=== PATIENT | female | born 1960 | race Caucasian/White ===

== ENCOUNTER 2017-03-12 21:01 | Emergency (ER) | payer OTHER ==
[2017-03-12] MEDS ORDERED: GI Cocktail Oral Solution 30 ML PO ONE (21:30)
--- NOTE | 2017-03-12 21:35 | EDM.PDOC ---
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 has stress test & echo scheduled next 2 weeks. states pain in mid chest and arms hurts too. Chest Pain Score (Numeric/FACES): 7 - Related Data Allergies Allergy/AdvReac Type Severity Reaction Status Date / Time diphenhydramine Allergy Hives Verified 03/12/17 21:32 fluticasone Allergy Hives Verified 03/12/17 21:32 propoxyphene Allergy Hives Verified 03/12/17 21:32 pseudoephedrine Allergy Hives Verified 03/12/17 21:32 zolmitriptan Allergy Hives Verified 03/12/17 21:32 ANTHIHISTAMINES Allergy Hives Uncoded 03/12/17 21:32 MORPHINE SULFATE Allergy Hives Uncoded 03/12/17 21:32 SULFA ANTIBIOTICS Allergy Hives Uncoded 03/12/17 21:32 Home Meds: Home Meds Almotriptan Malate [Axert] 12.5 mg PO ASDIRECTED PRN 07/27/13 [History] Cetirizine HCl [Zyrtec] 10 mg PO DAILY 07/27/13 [History] Ferrous Sulfate 325 mg PO BRK 07/27/13 [History] Montelukast [Singulair] 10 mg PO DAILY 07/27/13 [History] Nortriptyline HCl [Pamelor] 25 mg PO BEDTIME 07/27/13 [History] Acetaminophen [Tylenol] 650 mg PO ASDIRECTED PRN 07/30/13 [History] Furosemide [Lasix] 20 mg PO DAILY 10/03/14 [History] Losartan [Cozaar] 25 mg PO DAILY 10/03/14 [History] traMADol [Ultram] 50 mg PO Q4H PRN 10/03/14 [History] Social & Family History - Tobacco Use Smoking Status *Q: Never Smoker - Alcohol Use Days Per Week of Alcohol Use: 0 - Recreational Drug Use Recreational Drug Use: No Drug Use in Last 12 Months: No ED ROS GENERAL - Review of Systems Review Of Systems: ROS reveals no pertinent complaints other than HPI. ED EXAM, GENERAL - Physical Exam Exam: See Below Exam Limited By: No Limitations General Appearance: Alert, WD/WN, Anxious Ears: Hearing Grossly Normal Throat/Mouth: Normal Voice, No Airway Compromise Head: Atraumatic Neck: Non-Tender, Full Range of Motion Respiratory/Chest: No Respiratory Distress, Lungs Clear, Normal Breath Sounds Cardiovascular: Regular Rate, Rhythm GI/Abdominal: Soft, Non-Tender, Other (BS hyper). No: Distended, Guarding, Rigid, Rebound, Tender Neurological: Alert, Oriented, Normal Cognition, Normal Gait, No Motor/Sensory Deficits Psychiatric: Anxious Skin Exam: Warm, Dry, Normal Color Lymphatic: No Adenopathy Course - Vital Signs Last Recorded V/S: Last Vital Signs Temp 36.6 C 03/12/17 21:10 Pulse 69 03/12/17 21:10 Resp 18 03/12/17 21:10 BP 167/94 H 03/12/17 21:10 Pulse Ox 99 03/12/17 21:10 - Orders/Labs/Meds Orders: Active Orders 24 hr Category Date Time Status EKG 12 Lead [EKG Documentation Completion] [RC] STAT Care 03/12/17 21:15 Active Labs: Laboratory Tests 03/12/17 03/12/17 03/12/17 Range/Units 21:15 21:15 21:15 WBC 7.6 (5.0-10.0) 10^3/uL RBC 4.61 (4.2-5.4) 10^6/uL Hgb 13.0 (12.0-16.0) g/dL Hct 40.0 (37.0-47.0) % MCV 86.8 (80-100) fL MCH 28.2 (27.0-34.0) pg MCHC 32.5 L (33.0-35.0) g/dL Plt Count 225 (150-450) 10^3/uL Neut % (Auto) 51.3 (42.2-75.2) % Lymph % (Auto) 30.4 (20.5-50.1) % [place] % (Auto) 9.7 H (2-8) % Eos % (Auto) 7.9 H (1.0-3.0) % Baso % (Auto) 0.7 (0.0-1.0) % D-Dimer, Quantitative 890 H (0-400) ng/mL Sodium 141 (135-145) mmol/L Potassium 4.2 (3.6-5.0) mmol/L Chloride 106 (101-111) mmol/L Carbon Dioxide 25.0 (21.0-31.0) mmol/L Anion Gap 14.2 BUN 20 H (7-18) mg/dL Creatinine 1.0 (0.6-1.3) mg/dL Est Cr Clr Drug Dosing 50.73 mL/min Estimated GFR (MDRD) 57 BUN/Creatinine Ratio 20.00 Glucose 84 (74-105) mg/dL Calcium 9.5 (8.4-10.2) mg/dl Total Bilirubin 0.6 (0.2-1.0) mg/dL AST 26 (10-42) IU/L ALT 22 (10-60) IU/L Alkaline Phosphatase 90 (42-121) IU/L Troponin I < 0.02 (0.00-0.02) ng/ml B-Natriuretic Peptide 14 (0-100) pg/ml Total Protein 7.2 (6.7-8.2) g/dl Albumin 4.2 (3.2-5.5) g/dl Globulin 3.0 Albumin/Globulin Ratio 1.40 Meds: Medications Discontinued Medications Generic Name Dose Route Start Last Admin Trade Name Freq PRN Reason Stop Dose Admin Al Hydroxide/Mg Hydroxide 30 ml 03/12/17 21:30 03/12/17 21:36 Gi Cocktail PO 03/12/17 21:31 30 ml ONETIME ONE Administration Iopamidol 100 ml 03/12/17 22:26 03/12/17 23:10 Isovue-370 (76%) IVPUSH 03/12/17 22:27 100 ml ONETIME ONE Administration Lorazepam 1 mg 03/12/17 21:47 03/12/17 21:52 Ativan IVPUSH 03/12/17 21:48 1 mg ONETIME ONE Administration - Re-Assessments/Exams Free Text/Narrative Re-Assessment/Exam: 03/13/17 00:30 results discussed with pt & family. 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
[2017-03-12] MEDS ORDERED: LORazepam 2 MG/ML Syringe IVPUSH ONE (21:47)
[2017-03-12 21:51] LABS: CHLORIDE,CL 106 mmol/L (101-111); SODIUM,NA 141 mmol/L (135-145)
[2017-03-12] MEDS ORDERED: Iopamidol 755 Mg/ML 100 ML Bottle IVPUSH ONE (22:26)
--- NOTE | 2017-03-15 11:32 | EKG ---
03/12/2017 - BORIS ROOT I reviewed the EKG and agree with the machine's reading. [facility] /[id number]
== END 2017-03-13 00:50 | disposition home or self-care (01) ==
LOC: DL.ED 21:01
DX: R07.89 Other chest pain (principal); Z79.899 Other long term (current) drug therapy; Z88.2 Allergy status to sulfonamides; Z88.5 Allergy status to narcotic agent; Z88.8 Allergy status to other drugs, medicaments and biological substances
CPT/HCPCS: 36415; 71260; 80053; 83880; 84484; 85025; 85379; 93005; 96374; 99285; A9270; J2060; Q9967

== ENCOUNTER 2018-09-30 09:37 | Emergency (ER) | payer BC ==
[2018-09-30] MEDS ORDERED: Sodium Chloride 0.9% 10 ML Syringe FLUSH PRN (10:37)
[2018-09-30 11:43] LABS: ANION GAP 13.7; CHLORIDE,CL 105 mmol/L (101-111); SODIUM,NA 137 mmol/L (135-145)
[2018-09-30] MEDS ORDERED: Iopamidol 755 Mg/ML 100 ML Bottle IVPUSH ONE (11:51)
[2018-09-30] MEDS ORDERED: Heparin Sodium 5,000 Units/ML Vial IVPUSH ONE (12:56)
[2018-09-30] MEDS ORDERED: Heparin Sodium/0.45% NaCl 25,000 UNITS/500 ML BAG IV SCH (13:00)
[2018-09-30] MEDS ORDERED: Heparin Sodium/0.45% NaCl 500 ML ONE (13:00)
--- NOTE | 2018-09-30 17:55 | EDM.PDOC ---
Scribed by Lida Mares 09/30/18 1139 for Ernesitna Angeles NP ED HPI GENERAL MEDICAL PROBLEM - General Chief Complaint: Respiratory Problem Stated Complaint: SOB Time Seen by Provider: 09/30/18 10:30 Source of Information: Reports: Patient, RN, RN Notes Reviewed History Limitations: Reports: No Limitations - History of Present Illness INITIAL COMMENTS - FREE TEXT/NARRATIVE: Patient presents to ER with complaint of feeling clammy, sweaty, and shortness of breath. It began abruptly 24 hours ago and getting worse. States had a steroid injection in the back yesterday at [facility]. She has a cough, shortness of breath, lightheaded and cramps all through both legs. No chest pain, nausea or vomiting. Onset: Sudden Onset Date: 09/29/18 Duration: Getting Worse Location: Reports: Generalized Quality: Reports: Ache Severity: Moderate Improves with: Reports: None Worsens with: Reports: None Associated Symptoms: Reports: No Other Symptoms - Related Data Allergies Allergy/AdvReac Type Severity Reaction Status Date / Time diphenhydramine Allergy Hives Verified 09/30/18 09:41 fluticasone Allergy Hives Verified 09/30/18 09:41 propoxyphene Allergy Hives Verified 09/30/18 09:41 pseudoephedrine Allergy Hives Verified 09/30/18 09:41 zolmitriptan Allergy Hives Verified 09/30/18 09:41 ANTHIHISTAMINES Allergy Hives Uncoded 09/30/18 09:41 MORPHINE SULFATE Allergy Hives Uncoded 09/30/18 09:41 SULFA ANTIBIOTICS Allergy Hives Uncoded 09/30/18 09:41 Home Meds: Home Meds Almotriptan Malate [Axert] 12.5 mg PO ASDIRECTED PRN 07/27/13 [History] Cetirizine HCl [Zyrtec] 10 mg PO DAILY 07/27/13 [History] Ferrous Sulfate 325 mg PO BRK 07/27/13 [History] Montelukast [Singulair] 10 mg PO BEDTIME 07/27/13 [History] Acetaminophen [Tylenol] 650 mg PO ASDIRECTED PRN 07/30/13 [History] Furosemide [Lasix] 20 mg PO DAILY 10/03/14 [History] Cholecalciferol (Vitamin D3) [Vitamin D3] 400 units PO DAILY 03/14/17 [History] Losartan [Cozaar] 50 mg PO DAILY 03/14/17 [History] Meloxicam [Mobic] 15 mg PO DAILY 03/14/17 [History] Omeprazole 40 mg PO DAILY 03/14/17 [History] Past Medical History HEENT History: Reports: Impaired Vision Cardiovascular History: Reports: Hypertension Other Cardiovascular History: Heart function 70% Respiratory History: Reports: None Gastrointestinal History: Reports: GERD Genitourinary History: Reports: Other (See Below) Other Genitourinary History: Stage III Kidney Disease EMERGENCY SERVICES PROFESSIONAL History: Reports: Other (See Below) Other EMERGENCY SERVICES PROFESSIONAL History: CS Musculoskeletal History: Reports: Back Pain, Chronic Neurological History: Reports: Migraines Psychiatric History: Reports: None Endocrine/Metabolic History: Reports: Obesity/BMI 30+ Hematologic History: Reports: None Immunologic History: Reports: None Oncologic (Cancer) History: Reports: None Dermatologic History: Reports: None - Infectious Disease History Infectious Disease History: Reports: None - Past Surgical History Head Surgeries/Procedures: Reports: None Female Surgical History: Reports: Breast Reduction Musculoskeletal Surgical History: Reports: Other (See Below) Other Musculoskeletal Surgeries/Procedures:: Knee and feet bilateral surgery Social & Family History - Family History Family Medical History: Noncontributory - Tobacco Use Smoking Status *Q: Never Smoker Second Hand Smoke Exposure: No - Caffeine Use Caffeine Use: Reports: Tea - Recreational Drug Use Recreational Drug Use: No ED ROS GENERAL - Review of Systems Review Of Systems: ROS reveals no pertinent complaints other than HPI. ED EXAM, GENERAL - Physical Exam Exam: See Below Exam Limited By: No Limitations General Appearance: Moderate Distress Eye Exam: Bilateral Eye: EOMI, Normal Inspection, PERRL Ears: Normal External Exam, Normal Canal, Hearing Grossly Normal, Normal TMs Nose: Normal Inspection, Normal Mucosa, No Blood Throat/Mouth: Normal Inspection, Normal Lips, Normal Teeth, Normal Gums, Normal Oropharynx, Normal Voice, No Airway Compromise Head: Atraumatic, Normocephalic Neck: Normal Inspection, Supple, Non-Tender, Full Range of Motion Respiratory/Chest: Other (clear diminished) Cardiovascular: Normal Peripheral Pulses, Regular Rate, Rhythm, No Edema, No Gallop, No JVD, No Murmur, No Rub GI/Abdominal: Normal Bowel Sounds, Soft, Non-Tender, No Organomegaly, No Distention, No Abnormal Bruit, No Mass (Female) Exam: Deferred Rectal (Female) Exam: Deferred Back Exam: Normal Inspection, Full Range of Motion, NT Extremities: Normal Inspection, Normal Range of Motion, Non-Tender, Normal Capillary Refill, No Pedal Edema Neurological: Alert, Oriented, CN II-XII Intact, Normal Cognition, Normal Gait, Normal Reflexes, No Motor/Sensory Deficits Psychiatric: Anxious Skin Exam: Warm, Dry, Intact, Normal Color, No Rash Lymphatic: No Adenopathy EKG INTERPRETATION EKG Date: 09/30/18 Time: 10:45 Rhythm: Other (sinus rhythm) Rate (Beats/Min): 79 [place]: Normal P-Wave: Present QRS: Normal ST-T: Normal QT: Normal Course - Vital Signs Last Recorded V/S: Last Vital Signs Temp 97.3 F 09/30/18 13:05 Pulse 78 09/30/18 12:53 Resp 20 09/30/18 13:05 BP 159/77 H 09/30/18 12:53 Pulse Ox 99 09/30/18 13:05 - Orders/Labs/Meds Orders: Active Orders 24 hr Category Date Time Status EKG Documentation Completion [RC] STAT Care 09/30/18 10:37 Active Peripheral IV Care [RC] . DIRECTED Care 09/30/18 10:38 Active Peripheral IV Insertion Adult [OM.PC] Stat Oth 09/30/18 10:37 Ordered Labs: Laboratory Tests 09/30/18 09/30/18 09/30/18 Range/Units 11:13 11:13 11:13 WBC 8.5 (5.0-10.0) 10^3/uL RBC 4.21 (4.2-5.4) 10^6/uL Hgb 12.2 (12.0-16.0) g/dL Hct 37.0 (37.0-47.0) % MCV 87.9 (80-100) fL MCH 29.0 (27.0-34.0) pg MCHC 33.0 (33.0-35.0) g/dL Plt Count 233 (150-450) 10^3/uL Neut % (Auto) 80.9 H (42.2-75.2) % Lymph % (Auto) 12.6 L (20.5-50.1) % [place] % (Auto) 5.4 (2-8) % Eos % (Auto) 0.7 L (1.0-3.0) % Baso % (Auto) 0.4 (0.0-1.0) % PT 9.5 (9.0-12.0) SEC INR 1.0 (0.9-1.2) D-Dimer, Quantitative 3440 H (0-400) ng/mL Sodium 137 (135-145) mmol/L Potassium 3.7 (3.6-5.0) mmol/L Chloride 105 (101-111) mmol/L Carbon Dioxide 22.0 (21.0-31.0) mmol/L Anion Gap 13.7 BUN 23 H (7-18) mg/dL Creatinine 1.3 (0.6-1.3) mg/dL Est Cr Clr Drug Dosing 38.54 mL/min Estimated GFR (MDRD) 42 BUN/Creatinine Ratio 17.69 Glucose 95 (74-105) mg/dL Calcium 9.5 (8.4-10.2) mg/dl Total Bilirubin 0.9 (0.2-1.0) mg/dL AST 22 (10-42) IU/L ALT 22 (10-60) IU/L Alkaline Phosphatase 93 (42-121) IU/L Troponin I < 0.02 (0.00-0.02) ng/ml B-Natriuretic Peptide 12 (0-100) pg/ml Total Protein 7.6 (6.7-8.2) g/dl Albumin 4.2 (3.2-5.5) g/dl Globulin 3.4 Albumin/Globulin Ratio 1.24 Urine Color (YELLOW) Urine Appearance (CLEAR) Urine pH (5.0-9.0) Ur Specific [place] (1.005-1.030) Urine Protein (NEGATIVE) Urine Glucose (UA) (NEGATIVE) Urine Ketones (NEGATIVE) Urine Occult Blood (NEGATIVE) Urine Nitrite (NEGATIVE) Urine Bilirubin (NEGATIVE) Urine Urobilinogen (0.2-1.0) mg/dL Ur Leukocyte Esterase (NEGATIVE) 09/30/18 Range/Units 11:20 WBC (5.0-10.0) 10^3/uL RBC (4.2-5.4) 10^6/uL Hgb (12.0-16.0) g/dL Hct (37.0-47.0) % MCV (80-100) fL MCH (27.0-34.0) pg MCHC (33.0-35.0) g/dL Plt Count (150-450) 10^3/uL Neut % (Auto) (42.2-75.2) % Lymph % (Auto) (20.5-50.1) % [place] % (Auto) (2-8) % Eos % (Auto) (1.0-3.0) % Baso % (Auto) (0.0-1.0) % PT (9.0-12.0) SEC INR (0.9-1.2) D-Dimer, Quantitative (0-400) ng/mL Sodium (135-145) mmol/L Potassium (3.6-5.0) mmol/L Chloride (101-111) mmol/L Carbon Dioxide (21.0-31.0) mmol/L Anion Gap BUN (7-18) mg/dL Creatinine (0.6-1.3) mg/dL Est Cr Clr Drug Dosing mL/min Estimated GFR (MDRD) BUN/Creatinine Ratio Glucose (74-105) mg/dL Calcium (8.4-10.2) mg/dl Total Bilirubin (0.2-1.0) mg/dL AST (10-42) IU/L ALT (10-60) IU/L Alkaline Phosphatase (42-121) IU/L Troponin I (0.00-0.02) ng/ml B-Natriuretic Peptide (0-100) pg/ml Total Protein (6.7-8.2) g/dl Albumin (3.2-5.5) g/dl Globulin Albumin/Globulin Ratio Urine Color Yellow (YELLOW) Urine Appearance Clear (CLEAR) Urine pH 6.5 (5.0-9.0) Ur Specific [place] 1.010 (1.005-1.030) Urine Protein Negative (NEGATIVE) Urine Glucose (UA) Negative (NEGATIVE) Urine Ketones Negative (NEGATIVE) Urine Occult Blood Negative (NEGATIVE) Urine Nitrite Negative (NEGATIVE) Urine Bilirubin Negative (NEGATIVE) Urine Urobilinogen 0.2 (0.2-1.0) mg/dL Ur Leukocyte Esterase Negative (NEGATIVE) Meds: Medications Discontinued Medications Generic Name Dose Route Start Last Admin Trade Name Freq PRN Reason Stop Dose Admin Heparin Sodium (Porcine) 5,000 units 09/30/18 12:56 09/30/18 13:02 Heparin Sodium IVPUSH 09/30/18 12:57 5,000 units .BOLUS ONE Administration Heparin Sodium/Sodium Chloride 25,000 units in 500 mls @ 45.069 mls/hr 13:00 09/30/18 13:02 Heparin 25,000 Units In 1/2 Ns 500 Ml IV 18 units/kg/hr TITRATE ERICKA 45.069 mls/hr Administration Protocol 18 UNITS/KG/HR Heparin Sodium/Sodium Chloride Confirm 09/30/18 13:00 09/30/18 13:05 Heparin 25,000 Units In 1/2 Ns 500 Ml Administered 09/30/18 13:01 Not Given Dose 500 mls @ as directed .ROUTE .STK-MED ONE Iopamidol 100 ml 09/30/18 11:51 09/30/18 12:41 Isovue-370 (76%) IVPUSH 09/30/18 11:52 100 ml ONETIME ONE Administration Sodium Chloride 10 ml 09/30/18 10:37 09/30/18 11:54 Saline Flush FLUSH 10 ml ASDIRECTED PRN Administration Keep Vein Open - Radiology Interpretation Free Text/Narrative:: Chest xray: FINDINGS: Lungs: Unremarkable. No consolidation. Pleural space: Unremarkable. No pleural effusion. No pneumothorax. Heart/Mediastinum: Unremarkable. No cardiomegaly. IMPRESSION: No acute findings. Thank you for allowing us to participate in the care of your patient. Dictated and Authenticated by: Trent Gates MD 09/30/2018 11:25 AM Central Time ([place] & [place]) CT Chest: IMPRESSION: Multifocal bilateral PTE. No saddle embolus or evidence of right heart strain. Thank you for allowing us to participate in the care of your patient. Dictated and Authenticated by: Trent Gates MD 09/30/2018 12:39 PM Central Time ([place] & [place]) See rad report - Re-Assessments/Exams Free Text/Narrative Re-Assessment/Exam: 09/30/18 17:54 Patient case discussed with Dr. Aviles who agreed to accept the patient for transfer to [place]. Departure - Departure Time of Disposition: 13:49 Disposition: DC/Tfer to [facility] 02 Condition: Fair Clinical Impression: Pulmonary embolism Qualifiers: Pulmonary embolism type: unspecified Chronicity: acute Acute cor pulmonale presence: without acute cor pulmonale Qualified Code(s): I26.99 - Other pulmonary embolism without acute cor pulmonale - Discharge Information *PRESCRIPTION DRUG MONITORING PROGRAM REVIEWED*: No *COPY OF PRESCRIPTION DRUG MONITORING REPORT IN PATIENT LEWIS: No Referrals: PCP,None [Primary Care Provider] - Forms: ED Department Discharge, Interfacility Transfer EMTALA - My Orders Last 24 Hours: My Active Orders 09/30/18 10:37 EKG Documentation Completion [RC] STAT Peripheral IV Insertion Adult [OM.PC] Stat 09/30/18 10:38 Peripheral IV Care [RC] . DIRECTED - Assessment/Plan Last 24 Hours: My Active Orders 09/30/18 10:37 EKG Documentation Completion [RC] STAT Peripheral IV Insertion Adult [OM.PC] Stat 09/30/18 10:38 Peripheral IV Care [RC] . DIRECTED I have read and agree with the documentation that has been completed regarding this visit. By signing this record, I attest that the documentation was completed in my physical presence and is an accurate record of the encounter.
== END 2018-09-30 13:40 ==
LOC: DL.ED 09:37
DX: I26.99 Other pulmonary embolism without acute cor pulmonale (principal); I12.9 Hypertensive chronic kidney disease with stage 1 through stage 4 chronic kidney disease, or unspecified chronic kidney disease; N18.3 Chronic kidney disease, stage 3 (moderate); K21.9 Gastro-esophageal reflux disease without esophagitis; Z88.8 Allergy status to other drugs, medicaments and biological substances; Z88.2 Allergy status to sulfonamides; Z88.5 Allergy status to narcotic agent; Z79.899 Other long term (current) drug therapy
CPT/HCPCS: 36415; 71046; 71260; 80053; 81003; 83880; 84484; 85025; 85379; 85610; 93005; 96365; 96376; 99285; J1644; Q9967

== ENCOUNTER 2021-03-28 18:08 | Emergency (ER) | payer BC ==
--- NOTE | 2021-03-28 18:24 | EDM.PDOC ---
<Skyler Arellano M - Last Filed: 03/28/21 18:45> ED HPI GENERAL MEDICAL PROBLEM - General Stated Complaint: HURT RIGHT FOOT BY DROPPED OBJECT Time Seen by Provider: 03/28/21 18:10 Source of Information: Reports: Patient History Limitations: Reports: No Limitations - History of Present Illness INITIAL COMMENTS - FREE TEXT/NARRATIVE: This 61 yo female patient reports to the ED due to right foot pain. The patient reports she dropped a 15 ounce can of vegetables on her foot just prior to arrival while making dinner. The patient is on blood thinners (due to having blood clots in 2018) and has noticed increased swelling and pain in the area since the injury. Onset: Today Duration: Minutes: Location: Reports: Lower Extremity, Right Quality: Reports: Ache, Dull Severity: Moderate Improves with: Reports: None Worsens with: Reports: None Context: Reports: Activity Associated Symptoms: Reports: No Other Symptoms Right Feet Pain Score (Numeric/FACES): 10 - Related Data Allergies Allergy/AdvReac Type Severity Reaction Status Date / Time diphenhydramine Allergy Hives Verified 03/28/21 18:29 fluticasone Allergy Hives Verified 03/28/21 18:29 propoxyphene Allergy Hives Verified 03/28/21 18:29 pseudoephedrine Allergy Hives Verified 03/28/21 18:29 zolmitriptan Allergy Hives Verified 03/28/21 18:29 ANTHIHISTAMINES Allergy Hives Uncoded 03/28/21 18:29 MORPHINE SULFATE Allergy Hives Uncoded 03/28/21 18:29 SULFA ANTIBIOTICS Allergy Hives Uncoded 03/28/21 18:29 Home Meds: Home Meds Almotriptan Malate [Axert] 12.5 mg PO ASDIRECTED PRN 07/27/13 [History] Cetirizine HCl [Zyrtec] 10 mg PO DAILY 07/27/13 [History] Ferrous Sulfate 325 mg PO BRK 07/27/13 [History] Montelukast [Singulair] 10 mg PO BEDTIME 07/27/13 [History] Acetaminophen [Tylenol] 650 mg PO ASDIRECTED PRN 07/30/13 [History] Furosemide [Lasix] 20 mg PO DAILY 10/03/14 [History] Cholecalciferol (Vitamin D3) [Vitamin D3] 400 units PO DAILY 03/14/17 [History] Losartan [Cozaar] 50 mg PO DAILY 03/14/17 [History] Meloxicam [Mobic] 15 mg PO DAILY 03/14/17 [History] Omeprazole 40 mg PO DAILY 03/14/17 [History] Apixaban [Eliquis] 5 mg PO ASDIRECTED 03/28/21 [History] Bumetanide 03/28/21 [History] SUMAtriptan [Imitrex] 50 mg PO ASDIRECTED 03/28/21 [History] metOLazone [Metolazone] 2.5 mg PO ASDIRECTED 03/28/21 [History] Past Medical History HEENT History: Reports: Impaired Vision Cardiovascular History: Reports: Hypertension Other Cardiovascular History: Heart function 70% Respiratory History: Reports: None Gastrointestinal History: Reports: GERD Genitourinary History: Reports: Other (See Below) Other Genitourinary History: Stage III Kidney Disease BRIEF WRITER History: Reports: Other (See Below) Other BRIEF WRITER History: CS Musculoskeletal History: Reports: Back Pain, Chronic Neurological History: Reports: Migraines Psychiatric History: Reports: None Endocrine/Metabolic History: Reports: Obesity/BMI 30+ Hematologic History: Reports: None Immunologic History: Reports: None Oncologic (Cancer) History: Reports: None Dermatologic History: Reports: None - Infectious Disease History Infectious Disease History: Reports: None - Past Surgical History Head Surgeries/Procedures: Reports: None Female Surgical History: Reports: Breast Reduction Musculoskeletal Surgical History: Reports: Other (See Below) Other Musculoskeletal Surgeries/Procedures:: Knee and feet bilateral surgery Social & Family History - Family History Family Medical History: No Pertinent Family History - Caffeine Use Caffeine Use: Reports: Tea Review of Systems - Review of Systems Review Of Systems: Comprehensive ROS is negative, except as noted in HPI. ED EXAM, GENERAL - Physical Exam Exam Limited By: No Limitations General Appearance: Alert, WD/WN, Moderate Distress Eye Exam: Bilateral Eye: EOMI, Normal Inspection, PERRL Ears: Normal External Exam, Normal Canal, Hearing Grossly Normal, Normal TMs Nose: Normal Inspection, Normal Mucosa, No Blood Throat/Mouth: Normal Inspection, Normal Lips, Normal Teeth, Normal Gums, Normal Oropharynx, Normal Voice, No Airway Compromise Head: Atraumatic, Normocephalic Neck: Normal Inspection, Supple, Non-Tender, Full Range of Motion Respiratory/Chest: No Respiratory Distress, Lungs Clear, Normal Breath Sounds, No Accessory Muscle Use, Chest Non-Tender Cardiovascular: Normal Peripheral Pulses, Regular Rate, Rhythm, No Edema, No Gallop, No JVD, No Murmur GI/Abdominal: Normal Bowel Sounds, Soft, Non-Tender, No Organomegaly, No Distention, No Abnormal Bruit, No Mass (Female) Exam: Deferred Rectal (Female) Exam: Deferred Back Exam: Normal Inspection, Full Range of Motion, NT Extremities: Other (pain and swelling in her right foot) Neurological: Alert, Oriented, CN II-XII Intact, Normal Cognition, Normal Gait, Normal Reflexes, No Motor/Sensory Deficits Psychiatric: Normal Affect Lymphatic: No Adenopathy Departure - Departure Disposition: Home, Self-Care 01 Clinical Impression: Hematoma Sprain of foot, right Qualifiers: Encounter type: initial encounter Qualified Code(s): S93.601A - Unspecified sprain of right foot, initial encounter - Discharge Information Instructions: Foot Sprain, Hematoma, [id number] Forms: ED Department Discharge Additional Instructions: Elevate the foot and rest May alternate heat and ice May use Tylenol as directed for pain Follow up with your primary care facility if no improvement <Ernestina Angeles - Last Filed: 03/28/21 19:38> ED EXAM, GENERAL - Physical Exam Exam: See Below Course - Vital Signs Last Recorded V/S: Last Vital Signs Temp 98.6 F 03/28/21 18:20 Pulse 88 03/28/21 18:20 Resp 16 03/28/21 18:20 BP 156/94 H 03/28/21 18:20 Pulse Ox 96 03/28/21 18:20 - Radiology Interpretation Free Text/Narrative:: Right foot xray: [facility] [place] [facility] Final Radiology Report Call: [phone] assistance Online chat: [email or web address] Name: BORIS ROOT Age: 61Years F Date: 03/28/2021 SSN: -- : 1960 Study: CR FOOT COMP MIN 3V RT Requesting Physician: Skyler Arellano Images: 3 Addl Studies: Provided Clinical History: Right foot pain with sweling Contrast: Contrast Medium: Contrast Amount: Contrast Method: CONFIDENTIALITY STATEMENT This report is intended only for use by the referring physician, and only in accordance with law. If you received this in error, call [phone]. Page 1 of 1 PROCEDURE INFORMATION: Exam: XR Right Foot Exam date and time: 03/28/2021 6:26 PM Age: 61 years old Clinical indication: Other: Dropped can on top of foot--on blood thinners; Additional info: Right foot pain with sweling TECHNIQUE: Imaging protocol: XR Right foot. Views: 3 or more views. COMPARISON: No relevant prior studies available. FINDINGS: Bones/joints: There are mild degenerative changes of the first metatarsophalangeal joint. There is a noninflamed plantar enthesophyte. There is no evidence of acute fracture. Soft tissues: There is moderate soft tissue swelling over the dorsum of the metatarsals near the metatarsal heads. IMPRESSION: Soft tissue swelling over the dorsum of the distal metatarsals. Thank you for allowing us to participate in the care of your patient. Dictated and Authenticated by: Yunior Berrios MD 03/28/2021 7:22 PM Central Time ([place] & [place]) See rad report Departure - Departure Time of Disposition: 19:35 Condition: Good - Discharge Information *PRESCRIPTION DRUG MONITORING PROGRAM REVIEWED*: No *COPY OF PRESCRIPTION DRUG MONITORING REPORT IN PATIENT LEWIS: No Sepsis Event Note (ED) - Focused Exam Vital Signs: Vital Signs Temp Pulse Resp BP Pulse Ox 03/28/21 18:20 98.6 F 88 16 156/94 H 96
--- NOTE | 2021-03-28 19:22 | CR ---
PROCEDURE INFORMATION: Exam: XR Right Foot Exam date and time: 03/28/2021 6:26 PM Age: 61 years old Clinical indication: Other: Dropped can on top of foot--on blood thinners; Additional info: Right foot pain with sweling TECHNIQUE: Imaging protocol: XR Right foot. Views: 3 or more views. COMPARISON: No relevant prior studies available. FINDINGS: Bones/joints: There are mild degenerative changes of the first metatarsophalangeal joint. There is a noninflamed plantar enthesophyte. There is no evidence of acute fracture. Soft tissues: There is moderate soft tissue swelling over the dorsum of the metatarsals near the metatarsal heads. IMPRESSION: Soft tissue swelling over the dorsum of the distal metatarsals.
== END 2021-03-28 19:43 | disposition home or self-care (01) ==
LOC: DL.ED 18:08
DX: S93.601A Unspecified sprain of right foot, initial encounter (principal); K21.9 Gastro-esophageal reflux disease without esophagitis; I12.9 Hypertensive chronic kidney disease with stage 1 through stage 4 chronic kidney disease, or unspecified chronic kidney disease; N18.30 Chronic kidney disease, stage 3 unspecified; E66.9 Obesity, unspecified; Z88.2 Allergy status to sulfonamides; Z88.5 Allergy status to narcotic agent; Z88.8 Allergy status to other drugs, medicaments and biological substances; Z79.899 Other long term (current) drug therapy; Z68.41 Body mass index [BMI] 40.0-44.9, adult; Z79.01 Long term (current) use of anticoagulants; W20.8XXA Other cause of strike by thrown, projected or falling object, initial encounter
CPT/HCPCS: 73630-RT; 99283

== ENCOUNTER 2021-10-25 19:55 | Emergency (ER) | payer BC | END 2021-10-25 20:12 | disposition left against medical advice (07) | LOC: DL.ED 19:55 | DX: M79.604 Pain in right leg (principal); Z53.21 Procedure and treatment not carried out due to patient leaving prior to being seen by health care provider ==

== ENCOUNTER 2022-04-16 10:33 | Emergency (ER) | payer BC ==
[2022-04-16] MEDS ORDERED: Sodium Chloride 0.9% 10 ML Syringe FLUSH PRN (10:59)
[2022-04-16 11:19] LABS: ANION GAP 12.1 mEq/L (7-13)
[2022-04-16 11:23] LABS: PTT,PARTIAL THROMBOPLSTIN TIME 25.8 SEC (22.0-34.0)
[2022-04-16] MEDS ORDERED: Iopamidol 755 Mg/ML 100 ML Bottle IVPUSH ONE (11:40)
[2022-04-16 11:46] LABS: CORONAVIRUS COVID-19 NAA NEGATIVE (NEGATIVE); RESPIRATORY SYNCYTIAL VIR NAA NEGATIVE (NEGATIVE)
== END 2022-04-16 12:53 | disposition home or self-care (01) ==
LOC: DL.ED 10:33
DX: R06.02 Shortness of breath (principal); I11.0 Hypertensive heart disease with heart failure; I50.9 Heart failure, unspecified; E66.9 Obesity, unspecified; Z68.41 Body mass index [BMI] 40.0-44.9, adult; Z88.6 Allergy status to analgesic agent; Z88.5 Allergy status to narcotic agent; Z88.8 Allergy status to other drugs, medicaments and biological substances; Z79.899 Other long term (current) drug therapy; Z79.01 Long term (current) use of anticoagulants; Z79.84 Long term (current) use of oral hypoglycemic drugs; Z90.49 Acquired absence of other specified parts of digestive tract; Z20.822 Contact with and (suspected) exposure to COVID-19
CPT/HCPCS: 0241U; 36415; 71260; 80053; 85025; 85610; 85730; 99285; J3490; Q9967

== ENCOUNTER 2023-10-13 13:15 | Emergency (ER) | payer BC ==
[2023-10-13] MEDS: Acetaminophen 500 MG Tab PO ONE (13:44)
== END 2023-10-13 13:57 | disposition home or self-care (01) ==
LOC: DL.ED 13:15
DX: S09.90XA Unspecified injury of head, initial encounter (principal); I13.0 Hypertensive heart and chronic kidney disease with heart failure and stage 1 through stage 4 chronic kidney disease, or unspecified chronic kidney disease; I50.9 Heart failure, unspecified; N18.30 Chronic kidney disease, stage 3 unspecified; K21.9 Gastro-esophageal reflux disease without esophagitis; E66.9 Obesity, unspecified; Z68.39 Body mass index [BMI] 39.0-39.9, adult; Z86.16 Personal history of COVID-19; Z90.49 Acquired absence of other specified parts of digestive tract; Z79.899 Other long term (current) drug therapy; Z79.891 Long term (current) use of opiate analgesic; Z88.8 Allergy status to other drugs, medicaments and biological substances; Z88.1 Allergy status to other antibiotic agents; Z88.5 Allergy status to narcotic agent; W01.0XXA Fall on same level from slipping, tripping and stumbling without subsequent striking against object, initial encounter
CPT/HCPCS: 70450; 99283; 99284; A9270

== ENCOUNTER 2024-02-08 20:17 | Emergency (ER) | payer BC ==
[2024-02-08] MEDS ORDERED: Sodium Chloride 0.9% 10 ML Syringe FLUSH PRN (20:46)
[2024-02-08 20:59] LABS: BASOPHILS PERCENT AUTO 0.3 % (0.0-1.0); EOSINOPHILS PERCENT AUTO 2.3 % (1.0-3.0); HEMOGLOBIN 12.9 g/dL (12.0-16.0); LYMPHOCYTES PERCENT AUTO 14.7 % (20.5-50.1); MEAN CORPUSCULAR HEMOGLOBIN 29.2 pg (27.0-34.0); MEAN CORPUSCULAR HGB CONC 33.1 g/dL (33.0-35.0); MEAN CORPUSCULAR VOLUME 88.2 fL (80-100); MONOCYTES PERCENT AUTO 8.4 % (2-8); NEUTROPHILS PERCENT AUTO 74.3 % (42.2-75.2); PLATELET COUNT,PLT 261 10^3/uL (150-450); RED BLOOD CELL COUNT 4.42 10^6/uL (4.2-5.4); WHITE BLOOD CELL COUNT,WBC 10.3 10^3/uL (5.0-10.0)
[2024-02-08] MEDS: diphenhydrAMINE 50 MG/ML SDV IVPUSH ONE (21:15)
[2024-02-08] MEDS: Diphtheria,Pertussis(Acell),Tetanus Vaccine 0.5 ML Syringe IM ONE (21:15)
[2024-02-08] MEDS: Sodium Chloride 0.9% 500 ML IV ONE (21:16)
[2024-02-08] MEDS: Famotidine 20 MG/2 ML SDV IVPUSH ONE (21:16)
[2024-02-08 21:19] LABS: ANION GAP 15.2 mEq/L (7-13); CALCIUM 9.3 mg/dL (8.5-10.1); CREATININE 2.31 mg/dL (0.55-1.02); EST CRCL DRUG DOSING (CG) 20.35 mL/min; POTASSIUM,K 3.2 mmol/L (3.5-5.1)
[2024-02-08] MEDS: methylPREDNISolone Sodium Succinate 40 MG/1 ML SDV IM ONE (21:21)
[2024-02-08] MEDS: Sodium Chloride 0.9% 10 ML Syringe FLUSH PRN (21:21)
== END 2024-02-08 22:30 | disposition home or self-care (01) ==
LOC: DL.ED 20:17
DX: T63.451A Toxic effect of venom of hornets, accidental (unintentional), initial encounter (principal); Z91.038 Other insect allergy status; N17.9 Acute kidney failure, unspecified; E86.0 Dehydration; I13.0 Hypertensive heart and chronic kidney disease with heart failure and stage 1 through stage 4 chronic kidney disease, or unspecified chronic kidney disease; I50.9 Heart failure, unspecified; N18.30 Chronic kidney disease, stage 3 unspecified; K21.9 Gastro-esophageal reflux disease without esophagitis; E66.9 Obesity, unspecified; Z86.16 Personal history of COVID-19; Z90.49 Acquired absence of other specified parts of digestive tract; Z79.899 Other long term (current) drug therapy; Z79.01 Long term (current) use of anticoagulants; Z79.890 Hormone replacement therapy; Z88.2 Allergy status to sulfonamides; Z88.5 Allergy status to narcotic agent; Z88.8 Allergy status to other drugs, medicaments and biological substances; Z68.42 Body mass index [BMI] 45.0-49.9, adult
CPT/HCPCS: 36415; 80048; 85025; 96372; 96374; 96375; 99283-25; J1200; J2919; J3490; J7030